=== PATIENT | male | born 1990 | race Caucasian/White ===

== ENCOUNTER 2019-05-10 16:01 | Emergency (ER) | payer OTHER, SELFPAY ==
[~2019-05-10] VITALS: Ht 182.9 cm; Wt 89.5 kg
[2019-05-10 16:04] VITALS: BP 132/76
== END 2019-05-10 16:31 | disposition home or self-care (01) ==
LOC: ED 16:10
DX: R11.10 Vomiting, unspecified (principal); R69 Illness, unspecified
CPT/HCPCS: 99281